=== PATIENT | female | born 1985 | race Caucasian/White ===

== ENCOUNTER 2020-05-28 18:57 | Emergency (ER) | payer OTHER, SELFPAY ==
[2020-05-28 19:00] VITALS: BP 174/90; PULSE 110; RESP 14; TEMP 36.4; O2SAT 99; BMI 40.2
--- NOTE | 2020-05-28 19:02 | ED.HA ---
HPI - Headache General Chief Complaint: Headache Stated Complaint: migraine, vomiting Time Seen by Provider: 05/28/20 18:58 Source: patient Mode of arrival: Ambulatory Limitations: no limitations History of Present Illness HPI Narrative: 34-year-old female nonsmoker without significant medical history presents with a friend and a chief complaint of ongoing generalized headache for the past few days. She states it was gradual in onset, is worse with bright lights and loud noise and has been associated with pain sufficient to make her vomit. She denies any recent trauma or head injury. She has had no fever, chills or neck pain. She denies any blurred vision, trouble speech or other focal neurologic symptoms. She was seen and evaluated at an outside facility 2 days ago and had a very thorough evaluation including a head CT and lumbar puncture which were unremarkable. She reports some improvement with aspirin. She states her pain is 8/10 and generalized. She denies any recent runny nose, nasal congestion, ear pain, sore throat or other upper respiratory complaints. She denies any exposure to persons known to have COVID. MD Complaint: headache and migraine Onset (ago): day(s) Quality: aching and throbbing Associated symptoms: nausea, vomiting, photophobia and sensitivity to sound Treatments prior to arrival: acetaminophen and ibuprofen Related Data Previous Rx's Medication Instructions Recorded ketorolac 10 mg PO Q6H PRN #14 tab 05/28/20 metoclopramide HCl [Reglan] 10 mg PO Q6H PRN #10 tab 05/28/20 Allergies Allergy/AdvReac Type Severity Reaction Status Date / Time No Known Drug Allergies Allergy Verified 05/28/20 19:08 Review of Systems Constitutional Constitutional: Denies chills, Denies fatigue, Denies fever(s), Denies frequent falls, Reports headache(s), Denies lethargy and Denies weakness Eyes Eyes: Denies change in vision, Denies eye discharge, Denies irritation and Denies loss of vision ENT Ears, Nose, Mouth, and Throat: Denies change in voice, Denies dizziness, Reports headache(s), Denies neck pain, Denies sore throat and Denies throat swelling Cardiovascular Cardiovascular: Denies chest pain, Denies irregular heart rhythm, Denies lightheadedness, Denies palpitations, Denies dyspnea, Denies dyspnea on exertion and Denies orthopnea Respiratory Respiratory: Denies cough, Denies dyspnea, Denies dyspnea on exertion and Denies wheezing Gastrointestinal Gastrointestinal: Denies abdominal pain, Denies change in bowel habits, Denies diarrhea, Denies nausea and Denies vomiting Musculoskeletal Musculoskeletal: Denies neck pain and Denies numbness Integumentary/Breasts Skin/Breast: Denies pruritus, Denies erythema, Denies rash and Denies wounds Neurologic Neurologic: Denies behavioral changes, Denies confusion, Denies dizziness, Denies frequent falls, Reports headache(s), Denies loss of vision, Denies numbness and Denies weakness Psychiatric Psychiatric: Denies anxiety, Denies behavioral changes, Denies confusion, Denies depression, Denies homicidal ideation and Denies suicidal ideation Endocrine Endocrine: Denies fatigue, Denies flushing and Denies palpitations Hematologic/Lymphatic Hematologic/Lymphatic: Denies easy bruising Allergic/Immunologic Allergic/Immunologic: Denies urticaria, Denies throat swelling and Denies wheezing Patient History Social History Smoking Status: Unknown if ever smoked Exam Narrative Exam Narrative: GENERAL: [34] year old patient appears stated age. Well-nourished, well-developed patient, in mild distress. Resting in a dark room with a towel over her eyes HEAD: Atraumatic. Normocephalic. EYES: Pupils equal round and reactive. Extraocular motions intact. No scleral icterus. No injection or drainage. ENT: Nose without bleeding, purulent drainage. Throat without erythema, tonsillar hypertrophy or exudate. Airway patent. NECK: Trachea midline. Non tender CARDIOVASCULAR: Regular rate and rhythm without murmurs, gallops, or rubs. RESPIRATORY: Clear to auscultation. Breath sounds equal bilaterally. No wheezes, rales, or rhonchi. GASTROINTESTINAL: Abdomen soft, non-tender, nondistended. EXTREMITIES: No edema or joint tenderness. BACK: Nontender without deformity or crepitance. No flank tenderness. NEURO: AOx3. SKIN: No rash or erythema of visible areas NIH Stroke Scale 1a. LOC: Patient is alert and keenly responsive (0) 1b. LOC Questions: Patient answers both LOC questions accurately (0) 1c. LOC Commands: Patient performs both tasks correctly (0) 2. Best Gaze: Normal (0) 3. Visual: No visual loss (0) 4. Facial palsy: Normal symmetrical movements (0) 5. Motor arm: No drift (0) 6. Motor leg: No drift (0) 7. Limb ataxia: Absent (0) 8. Sensory: Normal (0) 9. Best language: No aphasia; normal (0) 10. Dysarthria: Normal (0) 11. Extinction and inattention: No abnormality (0) NIHSS: 0 Initial Vital Signs Initial Vital Signs: Vital Signs Temperature 97.5 F L 05/28/20 19:00 Pulse Rate 110 H 05/28/20 19:00 Respiratory Rate 14 05/28/20 19:00 Blood Pressure 174/90 H 05/28/20 19:00 Pulse Oximetry 99 05/28/20 19:00 Course Orders Ordered: Discontinued Medications Dexamethasone (Dexamethasone 10 Mg/Ml Vial) 10 mg IV NOW ONE Stop: 05/28/20 19:14 Last Admin: 05/28/20 20:03 Dose: 10 mg Documented by: CHEY Diphenhydramine HCl (Diphenhydramine 50 Mg/Ml Vial) 25 mg IV NOW ONE Stop: 05/28/20 19:14 Last Admin: 05/28/20 20:03 Dose: 25 mg Documented by: CHEY Sodium Chloride (Normal Saline 0.9%) 1,000 mls @ 1,000 mls/hr IV BOLUS ONE Stop: 05/28/20 20:12 Last Infusion: 05/28/20 22:06 Dose: 0 mls/hr Documented by: Admin: 05/28/20 20:09 Dose: 1,000 mls/hr Documented by: CHEY Ketorolac Tromethamine (Ketorolac 60 Mg/2 Ml Vial) 15 mg IV NOW ONE Stop: 05/28/20 19:14 Last Admin: 05/28/20 20:07 Dose: 15 mg Documented by: CHEY Metoclopramide HCl (Metoclopramide 10 Mg/2 Ml Inj) 10 mg IV NOW ONE Stop: 05/28/20 19:14 Last Admin: 05/28/20 20:06 Dose: 10 mg Documented by: CHEY Ondansetron HCl (Ondansetron 4 Mg Odt Prepack) 1 bottle MISC SEEINSTR ONE Stop: 05/28/20 20:51 Last Admin: 05/28/20 21:03 Dose: 1 bottle Documented by: CHEY Vital Signs Vital signs: Vital Signs - 8 hr 05/28/20 21:02 05/28/20 21:03 05/28/20 21:04 Pulse Rate 70 80 Respiratory Rate 16 Blood Pressure 143/83 H 143/87 H Pulse Oximetry 100 100 97 MDM - Headache MDM Narrative Medical decision making narrative: Headache considerations include, but not limited to: Subarachnoid hemorrhage, but unlikely as patient denies sudden onset of pain, not worst of life, or neck pain Meningitis considered, but thought unlikely given lack of Brudzinski's, Kernig's sign, altered mental status or fever Giant cell arteritis considered, but thought unlikely given lack of unilateral findings, pain in pentecostalism, vision change HTN Emergency considered, but thought unlikely given normal vitals Other serious diagnoses considered unlikely given lack of red flag findings such as sudden onset, increasing frequency, immunocompromise, systemic signs (fever, chills, stiff neck, or rash), focal neurologic findings, trauma, blood thinners, etc. Patient demonstrates significant improvement after above-stated therapies. She is given return precautions and encouraged to follow up with her primary care provider Discharge Plan Departure Patient Disposition: Home Clinical Impression: Headache Qualifiers: Headache type: unspecified Headache chronicity pattern: acute headache Intractability: not intractable Qualified Code(s): R51.9 - Headache, unspecified Instructions: DI for Headache Activity Restrictions/Additional Instructions: *You have been diagnosed with [nonspecific headache] *What to do: *Take medications as directed *Follow up with your primary care provider in 2-3 days, call for an appointment. Let them know you were seen in the Emergency Department and that we ask that you be seen in follow up *Return to ER if you should have any new, worsening or concerning symptoms, such as [worsening pain, fever over 101 F, confusion, trouble with vision or speech or other bothersome symptoms] Prescriptions: New ketorolac 10 mg tablet 10 mg PO Q6H PRN (Reason: pain) Qty: 14 RF: 0 metoclopramide HCl [Reglan] 10 mg tablet 10 mg PO Q6H PRN (Reason: nausea and vomiting) Qty: 10 RF: 0
[2020-05-28] MEDS: DEXAMETHASONE 10 MG/ML VIAL IV (20:03)
[2020-05-28] MEDS: diphenhydrAMINE 50 MG/ML VIAL 25 MG IV (20:03)
[2020-05-28] MEDS: METOCLOPRAMIDE 10 MG/2 ML INJ IV (20:06)
[2020-05-28] MEDS: KETOROLAC 60 MG/2 ML VIAL 15 MG IV (20:07)
[2020-05-28] MEDS: SODIUM CHLORIDE 0.9% 1,000 ML 1000 ML IV (20:09)
[2020-05-28 21:02] VITALS: O2SAT 100
[2020-05-28 21:03] VITALS: BP 143/83; PULSE 70; O2SAT 100
[2020-05-28] MEDS: ONDANSETRON 4 MG ODT PREPACK 1 BOTTLE MISC (21:03)
[2020-05-28 21:04] VITALS: BP 143/87; PULSE 80; RESP 16; O2SAT 97
--- NOTE | 2020-05-28 22:55 | PC.NURSE ---
Perscriptions weren't given to patient upon discharge. Called pt and she requested them be called to [facility] in [facility]. Perscription called in per request.
== END 2020-05-28 21:10 | disposition home or self-care (01) ==
PROVIDERS: Emergency Provider Emergency Medicine
DX: R51.9 Headache, unspecified (principal); R11.2 Nausea with vomiting, unspecified
CPT/HCPCS: 36415; 96361; 96374; 96375; 99283; 99284; J1100; J1200; J1885; J2765